=== PATIENT | male | born 1940 | race Hispanic/Latino ===

== ENCOUNTER → 2017-11-20 | Day surgery (SDC) | payer MEDICARE, OTHER ==
[2017-11-19 15:43] LABS: BASOPHILS % 0.6 % (0.0-1.0); EOSINOPHILS # (AUTO) 0.2 (0.0-0.4); EOSINOPHILS % 3.2 % (0.0-6.0); HEMATOCRIT 41.8 % (38.2-49.6); HEMOGLOBIN 13.9 g/dL (14.0-18.0); LYMPHOCYTES # (AUTO) 1.8 (1.0-3.2); LYMPHOCYTES % 27.8 % (18.0-39.1); MEAN CORPUSCULAR HEMOGLOBIN 31.3 pg (28-32); MEAN CORPUSCULAR HGB CONC 33.3 g/dL (31-35); MEAN CORPUSCULAR VOLUME 94.1 fL (81-99); MONOCYTES # (AUTO) 0.5 (0.2-0.8); MONOCYTES % 7.9 % (4.4-11.3); NEUTROPHILS # (AUTO) 3.9 (2.1-6.9); NEUTROPHILS % 60.2 % (38.7-80.0); PLATELET COUNT 161 x10e3/uL (140-360); RED BLOOD COUNT 4.44 x10e6/uL (4.3-5.7); RED CELL DISTRIBUTION WIDTH 12.9 % (11.7-14.4)
[2017-11-19 15:55] LABS: INR 0.92; PROTHROMBIN TIME 13.2 seconds (11.9-14.5)
[2017-11-19 16:06] LABS: ALANINE AMINOTRANSFERASE 22 IU/L (0-55); ALBUMIN 4.1 g/dL (3.5-5.0); ALKALINE PHOSPHATASE 82 IU/L (40-150); ANION GAP 16.3 mmol/L (8-16); BLOOD UREA NITROGEN 24 mg/dL (7-26); BUN/CREATININE RATIO 23 (6-25); CARBON DIOXIDE 26 mmol/L (22-29); CHLORIDE 102 mmol/L (98-107); CHOL/HDL RATIO 3.4 (3.9-4.7); CHOLESTEROL 145 MD/DL (0-199); CREATININE, SERUM 1.05 mg/dL (0.72-1.25); EST GLOMERULAR FILTRATION RATE > 60 ML/MIN (60-); GLUCOSE 98 mg/dL (74-118); HDL CHOLESTEROL 43 MG/DL (40-60); LDL CHOLESTEROL 73 MG/DL (60-130); POTASSIUM 4.3 mmol/L (3.5-5.1); SODIUM 140 mmol/L (136-145); TRIGLYCERIDES 143 MG/DL (0-149)
[2017-11-20] VITALS (10 sets, daily range): BP systolic 138–174; BP diastolic 54–77
[~2017-11-20] VITALS: Ht 165.1 cm; Wt 66.7 kg
[~2017-11-20] MED LIST: ALPRAZOLAM 0.5 MG TAB ONE; ASPIR 8181 MG PO; ATORVASTATIN CA20 MG PO; DIPHENHYDRAMINE HCL 25 MG CAP ONE; FENTANYL CITRATE/PF 100MCG/2 ML INJ ONE; FUROSEMIDE40 MG PO; HEPARIN SOD/SOD CHLORIDE 2,000 ML ONE; IOPAMIDOL 370 MG/ML 200 ML INFUS..BTL INJ ONE; LIDOCAINE HCL 1% LOCAL INJ 20 ML VIAL ONE; LOSARTAN POTASS25 MG PO; MIDAZOLAM HCL 2 MG/2 ML VIAL ONE; SODIUM CHLORIDE 0.9% 1000ML 1,000 ML ONE
--- NOTE | 2017-11-20 16:03 | Operative Report ---
DATE OF PROCEDURE: November 20, 2017 INDICATIONS: Carotid artery disease and stroke. PROCEDURES PERFORMED 1. Bilateral extracranial carotid angiograms. 2. Deployment of Mynx closure device in the right groin. COMPLICATIONS: None. RECOMMENDATIONS: Medical therapy. Access was obtained in the right femoral artery. Bilateral extracranial carotid angiograms were performed. 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 Left internal carotid artery had less than 20% stenosis. No intervention was deemed necessary. Right groin was repaired using Mynx closure device. Patient was discharged home the same day. Job#: [id number]
== END | disposition home or self-care (01) ==
LOC: CATH LAB 07:09
PROVIDERS: ATTEND Internal Medicine Interventional Cardiology
DX: I65.21 Occlusion and stenosis of right carotid artery (principal); I25.709 Atherosclerosis of coronary artery bypass graft(s), unspecified, with unspecified angina pectoris; I11.0 Hypertensive heart disease with heart failure; I50.20 Unspecified systolic (congestive) heart failure; Z01.812 Encounter for preprocedural laboratory examination; Z79.82 Long term (current) use of aspirin; Z79.02 Long term (current) use of antithrombotics/antiplatelets
CPT/HCPCS: 36222; 36415; 80053; 80061; 85025; 85610; C1769; J2001; J2250; J7030; Q9967